=== PATIENT | female | born 1945 | race Caucasian/White ===

== ENCOUNTER 2016-09-26 09:17 | Emergency (ER) | payer MEDICARE ==
[2016-09-26 09:51] LABS: ABSOLUTE BASOPHILS # (AUTO) 0.1 10^3/uL (0.0-0.2); ABSOLUTE EOSINOPHILS # (AUTO) 0.6 10^3/uL (0.0-0.6); ABSOLUTE LYMPHOCYTES (AUTO) 3.2 10^3/uL (0.5-4.7); ABSOLUTE MONOCYTES (AUTO) 1.1 10^3/uL (0.1-1.4); ABSOLUTE NEUT (AUTO) 5.2 10^3/uL (1.7-8.2); BASOPHILS % (AUTO) 0.5 % (0-2); EOSINOPHILS % (AUTO) 5.8 % (0-6); HEMATOCRIT 47.5 % (36.0-47.0); HEMOGLOBIN 16.4 g/dL (12.0-15.5); HGB HCT DIFFERENCE 1.7; LYMPHOCYTES % (AUTO) 31.7 % (13-45); MEAN CORPUSCULAR HGB CONC 34.5 g/dL (32.0-36.0); MEAN CORPUSCULAR VOLUME 90 fl (80-97); MONOCYTES % (AUTO) 10.7 % (3-13); RED BLOOD COUNT 5.28 10^6/uL (3.72-5.28); RED CELL DISTRIBUTION WIDTH 13.9 % (11.5-14.0); SEGMENTED NEUTROPHILS % (AUTO) 51.3 % (42-78); WHITE BLOOD COUNT 10.2 10^3/uL (4.0-10.5)
[2016-09-26 10:10] LABS: ALANINE AMINOTRANSFERASE 31 U/L (9-52); ALBUMIN 3.9 g/dL (3.5-5.0); ALKALINE PHOSPHATASE 81 U/L (38-126); ANION GAP 15 (5-19); ASPARTATE AMINO TRANSFERASE 24 U/L (14-36); BILIRUBIN,TOTAL 0.8 mg/dL (0.2-1.3); BLOOD UREA NITROGEN 26 mg/dL (7-20); CALCIUM 11.1 mg/dL (8.4-10.2); CARBON DIOXIDE 24 mmol/L (22-30); CHLORIDE 108 mmol/L (98-107); CREATINE KINASE 35 U/L (30-135); CREATININE RESULT 0.69 mg/dL (0.52-1.25); GLUCOSE 116 mg/dL (75-110); POTASSIUM 3.5 mmol/L (3.6-5.0); SODIUM 147.4 mmol/L (137-145); TOTAL PROTEIN 6.6 g/dL (6.3-8.2)
[2016-09-26 10:22] LABS: TROPONIN I < 0.012 ng/mL
[2016-09-26] MEDS ORDERED: LIDOCAINE 2% VISCOUS SOLN 20 ML UDCUP PO ONE (10:40)
[2016-09-26] MEDS ORDERED: MAG HYDROX/AL HYDROX/SIMETH SUSP 30 ML UDCUP PO ONE (10:40)
[2016-09-26] MEDS ORDERED: METOCLOPRAMIDE HCL ORAL SOLN 10 MG/10 ML UDCUP PO ONE (10:40)
--- NOTE | 2016-09-26 11:19 | ER Document Report ---
ED General - General Chief Complaint: Chest Pain Stated Complaint: ABDOMINAL PAIN Mode of Arrival: Medic Information source: Patient Notes: 71-year-old female presents with complaints of epigastric abdominal pain. Patient notes burning sensation going up and down her esophagus making her wonder vomit. Patient denies any actual chest pain denies any shortness breath difficult to breathing. Patient notes she had abdominal pain last week was diagnosed with a UTI at that time. TRAVEL OUTSIDE OF THE [place] IN LAST 30 DAYS: No - HPI Onset: Other - One half weeks duration Onset/Duration: Intermittent Quality of pain: Burning Severity: Mild Pain Level: 1 Associated symptoms: Nausea, Vomiting Exacerbated by: Denies Relieved by: Denies Similar symptoms previously: Yes Recently seen / treated by doctor: Yes - Related Data Allergies/Adverse Reactions: ascorbic acid [From Food Allergy Formula] Allergy (Unknown, Verified 09/20/16 06 :07) aspirin [Aspirin] Allergy (Unknown, Verified 09/20/16 06:07) bromelains [From Food Allergy Formula] Allergy (Unknown, Verified 09/20/16 06:07 ) Glutamine [From Food Allergy Formula] Allergy (Unknown, Verified 09/20/16 06:07) Penicillins Allergy (Unknown, Verified 09/20/16 06:07) quercetin [From Food Allergy Formula] Allergy (Unknown, Verified 09/20/16 06:07) selenium [From Food Allergy Formula] Allergy (Unknown, Verified 09/20/16 06:07) atorvastatin [Atorvastatin] Allergy (Verified 09/20/16 06:07) fenofibrate [Fenofibrate] Allergy (Verified 09/20/16 06:07) milk [Milk] Allergy (Verified 09/20/16 06:07) Past Medical History - Social History Smoking Status: Never Smoker Cigarette use (# per day): No Chew tobacco use (# tins/day): No Smoking Education Provided: No Family History: CAD, DM - Past Medical History Cardiac Medical History: Reports: Hx Hypercholesterolemia, Hx Hypertension Neurological Medical History: Denies: Hx Seizures Endocrine Medical History: Reports: Hx Hypothyroidism Renal/ Medical History: Denies: Hx Peritoneal Dialysis Musculoskeltal Medical History: Reports Hx Arthritis Past Surgical History: Reports: Hx Cholecystectomy. Denies: Hx Hysterectomy - Immunizations Hx Diphtheria, Pertussis, Tetanus Vaccination: Yes - unk date Review of Systems - Review of Systems Notes: REVIEW OF SYSTEMS: CONSTITUTIONAL : Denies fever, chills, or sweats. Denies recent illness. EENT: Denies eye, ear, throat, or mouth pain or symptoms. Denies nasal or sinus congestion or discharge. Denies throat, tongue, or mouth swelling or difficulty swallowing. CARDIOVASCULAR: Denies chest pain. Denies palpitations or racing or irregular heart beat. Denies ankle edema. RESPIRATORY: Denies cough, cold, or chest congestion. Denies shortness of breath, difficulty breathing, or wheezing. GASTROINTESTINAL: Admits to abdominal pain burning sensation with nausea and vomiting GENITOURINARY: Denies difficulty urinating, painful urination, burning, frequency, blood in urine, or discharge. FEMALE GENITOURINARY: Denies vaginal bleeding, heavy or abnormal periods, irregular periods. Denies vaginal discharge or odor. MUSCULOSKELETAL: Denies back or neck pain or stiffness. Denies joint pain or swelling. SKIN: Denies rash, lesions or sores. HEMATOLOGIC : Denies easy bruising or bleeding. LYMPHATIC: Denies swollen, enlarged glands. NEUROLOGICAL: Denies confusion or altered mental status. Denies passing out or loss of consciousness. Denies dizziness or lightheadedness. Denies headache. Denies weakness or paralysis or loss of use of either side. Denies problems with gait or speech. Denies sensory loss, numbness, or tingling. Denies seizures. PSYCHIATRIC: Denies anxiety or stress. Denies depression, suicidal ideation, or homicidal ideation. ALL OTHER SYSTEMS REVIEWED AND NEGATIVE. Dictation was performed using [employer] voice recognition software PHYSICAL EXAMINATION: GENERAL: Well-appearing, well-nourished and in no acute distress. HEAD: Atraumatic, normocephalic. EYES: Pupils equal round and reactive to light, extraocular movements intact, conjunctiva are normal. ENT: Nares patent, oropharynx clear without exudates. Moist mucous membranes. NECK: Normal range of motion, supple without lymphadenopathy LUNGS: Breath sounds clear to auscultation bilaterally and equal. No wheezes rales or rhonchi. HEART: Regular rate and rhythm without murmurs ABDOMEN: Soft, nontender, nondistended abdomen. No guarding, no rebound. No masses appreciated. Female : deferred Musculoskeletal: Normal range of motion, no pitting or edema. No cyanosis. NEUROLOGICAL: Cranial nerves grossly intact. Normal speech, normal gait. Normal sensory, motor exams PSYCH: Normal mood, normal affect. SKIN: Warm, Dry, normal turgor, no rashes or lesions noted. Physical Exam - Vital signs Vitals: Pulse Ox 98 09/26/16 09:17 Course - Re-evaluation Re-evalutation: 09/26/16 12:16 Physical examination is consistent with epigastric abdominal pain. Given that it worsens with food feels like a burning sensation that makes her want to vomit I did treat the patient with a GI cocktail which resolved her pain significantly. Patient denies any other pain at this time is very happy with the discharge plan. I believe this was what her issues were a week and half ago and will discharge her home on Pepcid and close follow-up with her primary care physician. There are no concerns for cardiac abnormalities given that EKG and cardiac enzymes did not note any acute abnormality After performing a Medical Screening Examination, I estimate there is LOW risk for ACUTE APPENDICITIS, BOWEL OBSTRUCTION, ACUTE CHOLECYSTITIS, PERFORATED DIVERTICULITIS, INCARCERATED HERNIA, PANCREATITIS, PELVIC INFLAMMATORY DISEASE, PERFORATED ULCER, ECTOPIC , or TUBO-OVARIAN ABSCESS, thus I consider the discharge disposition reasonable. Also, there is no evidence or peritonitis , sepsis, or toxicity. The patient and I have discussed the diagnosis and risks , and we agree with discharging home with close follow-up with the understanding that symptoms and presentations can change. We also discussed returning to the Emergency Department immediately if new or worsening symptoms occur. We have discussed the symptoms which are most concerning (e.g., bloody stool, fever, changing or worsening pain, vomiting) that necessitate immediate return. - Vital Signs Vital signs: Temp Pulse Resp BP Pulse Ox 16 110/93 H 95 09/26/16 10:01 09/26/16 10:00 09/26/16 10:01 - Laboratory Result Diagrams: 09/26/16 09:25 09/26/16 09:25 Laboratory results interpreted by me: 09/26/16 09/26/16 09:25 09:25 Hgb 16.4 H Hct 47.5 H Sodium 147.4 H Potassium 3.5 L Chloride 108 H BUN 26 H Glucose 116 H Calcium 11.1 H - Diagnostic Test Radiology reviewed: Image reviewed, Reports reviewed - EKG Interpretation by Me EKG shows normal: Sinus rhythm, [place], Intervals, QRS Complexes Discharge - Discharge Clinical Impression: Epigastric abdominal pain Nausea & vomiting Qualifiers: Vomiting type: unspecified Vomiting Intractability: non-intractable Qualified Code(s): R11.2 - Nausea with vomiting, unspecified Condition: Stable Disposition: HOME, SELF-CARE Instructions: Abdominal Pain ([facility]), Prilosec (Acid Pump Inhibitor) ([facility]) Prescriptions: Famotidine [Pepcid 20 mg Tablet] 20 mg PO DAILY #30 tablet Forms: Return to Work Referrals: DERRICK GIBBS MD [Primary Care Provider] - Follow up tomorrow
[2016-09-26 12:46] VITALS: BP 114/71
--- NOTE | 2016-09-26 18:33 | EKG REPORT ---
SEVERITY:- ABNORMAL ECG - SINUS TACHYCARDIA INFERIOR INFARCT, AGE INDETERMINATE CONSIDER ANTERIOR INFARCT : Confirmed by: Pepe Gan MD 26-Sep-2016 18:32:19
== END 2016-09-26 12:58 | disposition home or self-care (01) ==
LOC: ER 09:17
DX: R10.13 Epigastric pain (principal); R11.2 Nausea with vomiting, unspecified; R07.9 Chest pain, unspecified; R10.9 Unspecified abdominal pain
CPT/HCPCS: 93005; 99285; 36415; 82553; 82550; 85025; 80053; 84484; 71010; 93010; J3490; A9270

== ENCOUNTER 2017-07-22 09:09 | Emergency (ER) | payer MEDICARE ==
[2017-07-22] MEDS ORDERED: FLUTICASONE NASAL SPRAY 50 MCG/SPRY 120 SPRAY/16 GM NASL ONE (10:06)
--- NOTE | 2017-07-22 10:11 | ER Document Report ---
ED ENT - General Chief Complaint: Sinus Pain Stated Complaint: HEADACHE SINUS PAIN Time Seen by Provider: 07/22/17 09:25 Mode of Arrival: Ambulatory Information source: Patient Notes: 72-year-old female presents to ED for sinus pain and headache. Respirations are regular unlabored speaking in full sentences no acute distress at this time. Patient has denied any fevers patient states she gets sinus problems frequently and with the need of the heat recently this is brought on another episode and it started about 3 days ago. She states that the sinuses do cause her to cough. She has a history of blood pressure hypo-thyroid reflux and sinus problems she is on levothyroxine 88 mcg daily p.o., lisinopril 40 mg daily p.o., metoprolol succinate ER 25 mg daily p.o., a daily multivitamin p.o. , Pepcid 20 mg daily p.o., and pravastatin 20 mg daily. TRAVEL OUTSIDE OF THE [place] IN LAST 30 DAYS: No - HPI Patient complains to provider of: Nose problem, Throat problem Onset: Other - 3 days Onset/Duration: Intermittent Severity: Moderate Pain Level: 2 Context: Recent Illness Location of pain: Nose, Sinus, Throat Associated symptoms: Congestion, Cough, Sinus pain, Sinus drainage, Sore throat Similar symptoms previously: Yes Recently seen / treated by doctor: No - Related Data Allergies/Adverse Reactions: ascorbic acid [From Food Allergy Formula] Allergy (Unknown, Verified 09/20/16 06 :07) aspirin [Aspirin] Allergy (Unknown, Verified 09/20/16 06:07) bromelains [From Food Allergy Formula] Allergy (Unknown, Verified 09/20/16 06:07 ) Glutamine [From Food Allergy Formula] Allergy (Unknown, Verified 09/20/16 06:07) Penicillins Allergy (Unknown, Verified 09/20/16 06:07) quercetin [From Food Allergy Formula] Allergy (Unknown, Verified 09/20/16 06:07) selenium [From Food Allergy Formula] Allergy (Unknown, Verified 09/20/16 06:07) atorvastatin [Atorvastatin] Allergy (Verified 09/20/16 06:07) fenofibrate [Fenofibrate] Allergy (Verified 09/20/16 06:07) milk [Milk] Allergy (Verified 09/20/16 06:07) Past Medical History - General Information source: Patient - Social History Smoking Status: Former Smoker Cigarette use (# per day): No Chew tobacco use (# tins/day): No Smoking Education Provided: No Frequency of alcohol use: Occasional Drug Abuse: None Occupation: mail clerk bills Lives with: Alone Family History: Arthritis, CAD, DM, Hyperlipidemia, Hypertension, Malignancy. denies: COPD, CVA, Thyroid Disfunction Patient has suicidal ideation: No Patient has homicidal ideation: No - Past Medical History Cardiac Medical History: Reports: Hx Hypercholesterolemia, Hx Hypertension Pulmonary Medical History: Reports: None EENT Medical History: Reports: None Neurological Medical History: Reports: None Endocrine Medical History: Reports: Hx Hypothyroidism Renal/ Medical History: Reports: None Malignancy Medical History: Reports: None GI Medical History: Reports: None Musculoskeltal Medical History: Reports None Skin Medical History: Reports None Psychiatric Medical History: Reports: None Traumatic Medical History: Reports: None Infectious Medical History: Reports: None Past Surgical History: Reports: Hx Cholecystectomy - Immunizations Immunizations up to date: No Hx Diphtheria, Pertussis, Tetanus Vaccination: No History of Influenza Vaccine for 04/2017 - 09/2017 Season: No Review of Systems - Review of Systems Constitutional: Recent illness. denies: Chills, Fever EENT: Nose congestion, Nose discharge, Sinus pressure, Sinus discharge Cardiovascular: No symptoms reported Respiratory: Cough Gastrointestinal: No symptoms reported Genitourinary: No symptoms reported Female Genitourinary: No symptoms reported Musculoskeletal: No symptoms reported Skin: No symptoms reported Hematologic/Lymphatic: No symptoms reported Neurological/Psychological: No symptoms reported -: Yes All other systems reviewed and negative Physical Exam - Vital signs Vitals: Temp Pulse Resp BP Pulse Ox 98.6 F 115 H 18 194/90 H 94 07/22/17 09:30 07/22/17 09:30 07/22/17 09:30 07/22/17 09:30 07/22/17 09:30 Interpretation: Normal - General General appearance: Appears well, Alert - HEENT Head: Normocephalic, Atraumatic Eyes: Normal Pupils: PERRL Ears: Normal External canal: Normal Tympanic membrane: Normal Sinus: Frontal, Tenderness Nasal: Purulent discharge, Swelling Mouth/Lips: Normal Mucous membranes: Normal Pharynx: Post nasal drainage Neck: Normal - Respiratory Respiratory status: No respiratory distress Chest status: Nontender Breath sounds: Nonproductive cough. No: Productive cough, Rales, Rhonchi, Stridor, Wheezing Chest palpation: Normal - Cardiovascular Rhythm: Regular Heart sounds: Normal auscultation Murmur: No - Abdominal Inspection: Normal Distension: No distension Bowel sounds: Normal Tenderness: Nontender Organomegaly: No organomegaly - Back Back: Normal, Nontender - Extremities General upper extremity: Normal inspection, Nontender, Normal color, Normal ROM , Normal temperature General lower extremity: Normal inspection, Nontender, Normal color, Normal ROM , Normal temperature, Normal weight bearing. No: Errol's sign - Neurological Neuro grossly intact: Yes Cognition: Normal Orientation: AAOx4 [place] Coma Scale Eye Opening: Spontaneous [place] Coma Scale Verbal: Oriented [place] Coma Scale Motor: Obeys Commands [place] Coma Scale Total: 15 Speech: Normal Motor strength normal: LUE, RUE, LLE, RLE Sensory: Normal - Psychological Associated symptoms: Normal affect, Normal mood - Skin Skin Temperature: Warm Skin Moisture: Dry Skin Color: Normal Course - Re-evaluation Re-evalutation: 07/22/17 10:12 Patient was treated with Flonase in the emergency room and instructed to follow- up with her primary doctor via telephone Monday to have them recommend a allergy medicine for her for her frequent sinus discomfort. She is on blood pressure medicines. - Vital Signs Vital signs: Temp Pulse Resp BP Pulse Ox 98.6 F 98 18 192/88 H 94 07/22/17 09:30 07/22/17 10:18 07/22/17 09:30 07/22/17 10:18 07/22/17 09:30 Discharge - Discharge Clinical Impression: URI (upper respiratory infection) Qualifiers: URI type: unspecified URI Qualified Code(s): J06.9 - Acute upper respiratory infection, unspecified HTN (hypertension) Qualifiers: Hypertension type: unspecified Qualified Code(s): I10 - Essential (primary) hypertension Condition: Stable Disposition: HOME, SELF-CARE Instructions: Family Physicians / Practices Additional Instructions: UPPER RESPIRATORY ILLNESS: You have a viral infection of the respiratory passages -- a "cold." This common infection causes nasal congestion, drainage, and often sore throat and cough. It is highly contagious. The disease usually lasts about 10 to 14 days. There is no "cure" for the viral infection -- it must run its course. If there is a complication, such as bacterial infection in the nose, sinuses, middle ear, or bronchial tubes, antibiotics may be required. The antibiotics won't affect the virus. Drink plenty of fluids. A humidifier may help. An expectorant medication or decongestant may make you more comfortable. Use acetaminophen or ibuprofen for fever or aches. See the doctor if fever persists over two days, if there is any significant worsening of your symptoms, or if you simply fail to improve as expected. COUGH-SUPPRESSANT & EXPECTORANT MEDICATION: You are to use a cough medication as needed for relief of symptoms. This medicine is a combination of an expectorant (to make the mucous thinner and more easily "coughed up") and a cough suppressant (to reduce the frequency of coughing). The cough-suppressant medicine is related to narcotics. You may experience mild nausea and sleepiness. Some patients who are very sensitive to narcotics may have stomach pain from this medicine. Taking the medicine with food reduces these side effects. Do not drive or work with machinery until you know how this medicine affects you. The expectorant should have no side effects. Iodine-containing expectorants (such as organidin) should not be taken by persons with active thyroid disease unless approved by your doctor. Call the doctor if you develop shortness of breath, hives, rash, itching, lightheadedness, or severe nausea and vomiting. USE OF ACETAMINOPHEN (Tylenol): Acetaminophen may be taken for pain relief or fever control. It's much safer than aspirin, offering a wider range of "safe" dosages. It is safe during . Some brand names are Tylenol, Panadol, Datril, Anacin 3, Tempra, and Liquiprin. Acetaminophen can be repeated every four hours. The following are maximum recommended dosages: >89 pounds or adults 650 mg to 900 mg Acetaminophen can be repeated every four hours. Maximum dose not to exceed 4000 mg a day. You was started on Flonase today 2 sprays each nostril. Please call your primary doctor on Monday to ask for recommendations for allergy medicine. FOLLOW-UP CARE: If you have been referred to a physician for follow-up care, call the physician s office for an appointment as you were instructed or within the next two days. If you experience worsening or a significant change in your symptoms, notify the physician immediately or return to the Emergency Department at any time for re-evaluation. Forms: Elevated Blood Pressure, Return to Work Referrals: KEE LA PA-C [Primary Care Provider] - Follow up as needed
[2017-07-22 10:19] VITALS: BP 192/88
== END 2017-07-22 10:28 | disposition home or self-care (01) ==
LOC: ER 09:09
DX: J02.9 Acute pharyngitis, unspecified (principal); I10 Essential (primary) hypertension; J34.89 Other specified disorders of nose and nasal sinuses; R51 Headache; R05 Cough; E03.9 Hypothyroidism, unspecified; E78.00 Pure hypercholesterolemia, unspecified; K21.9 Gastro-esophageal reflux disease without esophagitis; Z79.899 Other long term (current) drug therapy; Z88.6 Allergy status to analgesic agent; Z91.018 Allergy to other foods; Z91.011 Allergy to milk products; Z88.8 Allergy status to other drugs, medicaments and biological substances; Z87.891 Personal history of nicotine dependence
CPT/HCPCS: 99283; A9270

== ENCOUNTER 2017-10-09 08:44 | Emergency (ER) | payer MEDICARE ==
[2017-10-09] MEDS ORDERED: ONDANSETRON 4 MG TAB.RAPDIS PO ONE (09:24)
--- NOTE | 2017-10-09 09:38 | ER Document Report ---
ED GI/ - General Chief Complaint: Nausea/Vomiting Stated Complaint: NAUSEA Time Seen by Provider: 10/09/17 09:24 Mode of Arrival: Ambulatory Information source: Patient Notes: Patient is a 72-year-old female who presents to the ER today for nausea and one episode of vomiting starting last night after she ate "too much lobster" this weekend. Patient states that Monday and Monday she ate a profuse amount of lobster all day long because she "loves lobster." Patient states she has not had lobster in years so she "may have overdone it a bit." Patient states that her belches smell and taste like lobster. She states that all she can think about his lobster and it makes her nauseated. She would like some nausea medication and a work note. She denies any abdominal pain or diarrhea, fevers, chills. TRAVEL OUTSIDE OF THE [place] IN LAST 30 DAYS: No - Related Data Allergies/Adverse Reactions: ascorbic acid [From Food Allergy Formula] Allergy (Unknown, Verified 10/11/17 08 :09) aspirin [Aspirin] Allergy (Unknown, Verified 10/11/17 08:09) bromelains [From Food Allergy Formula] Allergy (Unknown, Verified 10/11/17 08:09 ) Glutamine [From Food Allergy Formula] Allergy (Unknown, Verified 10/11/17 08:09) Penicillins Allergy (Unknown, Verified 10/11/17 08:09) quercetin [From Food Allergy Formula] Allergy (Unknown, Verified 10/11/17 08:09) selenium [From Food Allergy Formula] Allergy (Unknown, Verified 10/11/17 08:09) atorvastatin [Atorvastatin] Allergy (Verified 10/11/17 08:09) fenofibrate [Fenofibrate] Allergy (Verified 10/11/17 08:09) milk [Milk] Allergy (Verified 10/11/17 08:09) Past Medical History - General Information source: Patient - Social History Smoking Status: Former Smoker Family History: Arthritis, CAD, DM, Hyperlipidemia, Hypertension, Malignancy. denies: COPD, CVA, Thyroid Disfunction - Past Medical History Cardiac Medical History: Reports: Hx Hypercholesterolemia, Hx Hypertension Neurological Medical History: Denies: Hx Seizures Endocrine Medical History: Reports: Hx Hypothyroidism Renal/ Medical History: Denies: Hx Peritoneal Dialysis Musculoskeltal Medical History: Reports Hx Arthritis Past Surgical History: Reports: Hx Cholecystectomy. Denies: Hx Hysterectomy - Immunizations Immunizations up to date: No Hx Diphtheria, Pertussis, Tetanus Vaccination: No Review of Systems - Review of Systems Constitutional: No symptoms reported EENT: No symptoms reported Cardiovascular: No symptoms reported Respiratory: No symptoms reported Gastrointestinal: See HPI Genitourinary: No symptoms reported Female Genitourinary: No symptoms reported Musculoskeletal: No symptoms reported Skin: No symptoms reported Hematologic/Lymphatic: No symptoms reported Neurological/Psychological: No symptoms reported Physical Exam - Vital signs Vitals: Temp Pulse Resp BP Pulse Ox 98.6 F 104 H 16 188/99 H 94 10/09/17 08:49 10/09/17 08:49 10/09/17 08:49 10/09/17 08:49 10/09/17 08:49 - Notes Notes: PHYSICAL EXAMINATION: GENERAL: Well-appearing and in no acute distress. HEAD: Atraumatic, normocephalic. EYES: Pupils equal round and reactive to light, extraocular movements intact, sclera anicteric, conjunctiva are normal. NECK: Normal range of motion, supple without lymphadenopathy LUNGS: CTAB and equal. No wheezes rales or rhonchi. HEART: Regular rate and rhythm without murmurs ABDOMEN: Soft, no tenderness. No guarding, no rebound BACK: no vertebral tenderness, normal ROM GI/: no CVA tenderness EXTREMITIES: Normal range of motion, no pitting edema. No cyanosis. NEUROLOGICAL: Cranial nerves grossly intact. Normal sensory/motor exams. PSYCH: Normal mood, normal affect. SKIN: Warm, Dry, normal turgor, no rashes or lesions noted Course - Re-evaluation Re-evalutation: 10/11/17 09:43 Patient has not vomited here, is well-appearing, smiling, laughing about why she is here. She even apologizes multiple times saying "I am so sorry for wasting your time with this." 10/11/17 09:44 - Vital Signs Vital signs: Temp Pulse Resp BP Pulse Ox 98.6 F 93 16 155/85 H 98 10/09/17 08:49 10/09/17 09:45 10/09/17 09:45 10/09/17 09:45 10/09/17 09:45 Discharge - Discharge Clinical Impression: Nausea & vomiting Qualifiers: Vomiting type: unspecified Vomiting Intractability: non-intractable Qualified Code(s): R11.2 - Nausea with vomiting, unspecified Condition: Stable Disposition: HOME, SELF-CARE Additional Instructions: Return immediately for any new or worsening symptoms. Follow up with primary care provider, call tomorrow to make followup appointment. Drink plenty of fluids. Forms: Return to Work Referrals: KEE LA PA-C [Primary Care Provider] - Follow up as needed
[2017-10-09 09:54] VITALS: BP 155/85
== END 2017-10-09 09:45 | disposition home or self-care (01) ==
LOC: ER 08:44
DX: R11.2 Nausea with vomiting, unspecified (principal); I10 Essential (primary) hypertension; Z88.6 Allergy status to analgesic agent; Z91.018 Allergy to other foods; Z91.011 Allergy to milk products; Z87.891 Personal history of nicotine dependence; Z90.49 Acquired absence of other specified parts of digestive tract
CPT/HCPCS: 99283; A9270; S0119

== ENCOUNTER 2017-10-11 08:07 | Emergency (ER) | payer MEDICARE ==
[2017-10-11 09:18] LABS: APPEARANCE,URINE CLEAR; BILIRUBIN,URINE NEGATIVE (NEGATIVE); COLOR,URINE YELLOW; GLUCOSE, URINE NEGATIVE (NEGATIVE); KETONES,URINE NEGATIVE (NEGATIVE); LEUKOCYTE ESTERASE,URINE MODERATE (NEGATIVE); NITRITE,URINE NEGATIVE (NEGATIVE); PROTEIN,URINE NEGATIVE (NEGATIVE); URINE SPECIFIC GRAVITY 1.005; UROBILINOGEN,URINE NEGATIVE mg/dL (<2.0)
--- NOTE | 2017-10-11 09:20 | ER Document Report ---
ED General - General Chief Complaint: Urinary Frequency Stated Complaint: URINARY PROBLEM Time Seen by Provider: 10/11/17 08:38 Notes: 72-year-old lady presents with 48 hours of dysuria constant moderate not associated with fever pain or vomiting. History of UTI. Denies bulging uterine prolapse or other gynecologic/urinary issues. No back pain or fever. TRAVEL OUTSIDE OF THE [place] IN LAST 30 DAYS: No - Related Data Allergies/Adverse Reactions: ascorbic acid [From Food Allergy Formula] Allergy (Unknown, Verified 10/11/17 08 :09) aspirin [Aspirin] Allergy (Unknown, Verified 10/11/17 08:09) bromelains [From Food Allergy Formula] Allergy (Unknown, Verified 10/11/17 08:09 ) Glutamine [From Food Allergy Formula] Allergy (Unknown, Verified 10/11/17 08:09) Penicillins Allergy (Unknown, Verified 10/11/17 08:09) quercetin [From Food Allergy Formula] Allergy (Unknown, Verified 10/11/17 08:09) selenium [From Food Allergy Formula] Allergy (Unknown, Verified 10/11/17 08:09) atorvastatin [Atorvastatin] Allergy (Verified 10/11/17 08:09) fenofibrate [Fenofibrate] Allergy (Verified 10/11/17 08:09) milk [Milk] Allergy (Verified 10/11/17 08:09) Past Medical History - Social History Smoking Status: Never Smoker Chew tobacco use (# tins/day): No Frequency of alcohol use: None Drug Abuse: None Family History: Arthritis, CAD, DM, Hyperlipidemia, Hypertension, Malignancy. denies: COPD, CVA, Thyroid Disfunction Patient has suicidal ideation: No Patient has homicidal ideation: No - Past Medical History Cardiac Medical History: Reports: Hx Hypercholesterolemia, Hx Hypertension Neurological Medical History: Denies: Hx Seizures Endocrine Medical History: Reports: Hx Hypothyroidism Renal/ Medical History: Denies: Hx Peritoneal Dialysis GI Medical History: Reports: Hx Gastroesophageal Reflux Disease Musculoskeltal Medical History: Reports Hx Arthritis Past Surgical History: Reports: Hx Cholecystectomy. Denies: Hx Hysterectomy - Immunizations Immunizations up to date: No Hx Diphtheria, Pertussis, Tetanus Vaccination: No Review of Systems - Review of Systems Notes: REVIEW OF SYSTEMS GEN: Denies fever, chills, weight loss ENT: Denies sore throat, nasal discharge, ear pain EYES: Denies blurry vision, eye pain, discharge CV: Denies chest pain, palpitations, edema RESP: Denies cough, shortness of breath, wheezing GI: Denies abdominal pain, nausea, vomiting, diarrhea MSK: Denies joint pain/swelling, edema, SKIN: Denies rash, skin lesions LYMPH: Denies swollen glands/lymph nodes NEURO: Denies headache, focal weakness or numbness, dizziness PSYCH: Denies depression, suicidal or homicidal ideation PHYSICAL EXAMINATION General: No acute distress, well-nourished Head: Atraumatic, normocephalic ENT: Mouth normal, oropharynx moist, no exudates or tonsillar enlargement Eyes: Conjunctiva normal, pupils equal, lids normal Neck: No JVD, supple, no guarding CVS: Normal rate, regular rhythm, no murmurs Resp: No resp distress, equal and normal breath sounds bilaterally GI: Nondistended, soft, no tenderness to palpation, no rebound or guarding Ext: No deformities, no edema, normal range of motion in upper and lower ext Back: No CVA or midline TTP Skin: No rash, warm Lymphatic: No lymphadeopathy noted Neuro: Awake, alert. Face symmetric. GCS 15. Physical Exam - Vital signs Vitals: Temp Pulse Resp BP Pulse Ox 98.5 F 110 H 18 194/103 H 94 10/11/17 08:23 10/11/17 08:23 10/11/17 08:23 10/11/17 08:23 10/11/17 08:23 Course - Re-evaluation Re-evalutation: 10/11/17 09:27 Elderly patient presents with repeat episode of urinary frequency and history of UTIs. She has no CVA tenderness or fever. Her last labs show a UTI but no signs of kidney stone. Initially mildly tachycardic however on my exam she has normal without fever. She has been cultured I will treat her with Bactrim empirically given her penicillin allergy. I recommended referral to urology given the repeat episodes of UTI. At this time she has no evidence of pyelonephritis and is safe for discharge home. I have discussed with the patient there likely diagnosis, aftercare plan, follow -up plans and my usual and customary return precautions. They verbalized understanding of this. - Vital Signs Vital signs: Temp Pulse Resp BP Pulse Ox 98.5 F 110 H 18 194/103 H 94 10/11/17 08:23 10/11/17 08:23 10/11/17 08:23 10/11/17 08:23 10/11/17 08:23 - Laboratory Laboratory results interpreted by me: 10/11/17 08:45 Ur Leukocyte Esterase MODERATE H Discharge - Discharge Clinical Impression: Acute cystitis without hematuria Condition: Good Disposition: HOME, SELF-CARE Instructions: Urinary Tract Infection ([facility]) Prescriptions: Sulfamethoxazole/Trimethoprim [Bactrim Ds Tablet] 1 each PO BID #14 tablet
[2017-10-11 09:44] VITALS: BP 162/104
== END 2017-10-11 09:44 | disposition home or self-care (01) ==
LOC: ER 08:07
DX: N30.00 Acute cystitis without hematuria (principal); E78.00 Pure hypercholesterolemia, unspecified; I10 Essential (primary) hypertension; E03.9 Hypothyroidism, unspecified; Z88.0 Allergy status to penicillin; Z88.6 Allergy status to analgesic agent; Z90.49 Acquired absence of other specified parts of digestive tract; Z87.440 Personal history of urinary (tract) infections
CPT/HCPCS: 81001; 87086; 87088; 87186; 99283

== ENCOUNTER 2017-11-21 09:01 | Emergency (ER) | payer MEDICARE ==
[2017-11-21] MEDS ORDERED: NORMAL SALINE 1000 ML 1,000 ML IV ONE (09:36)
[2017-11-21 10:50] LABS: ABSOLUTE EOSINOPHILS # (AUTO) 0.3 10^3/uL (0.0-0.6); ABSOLUTE LYMPHOCYTES (AUTO) 2.2 10^3/uL (0.5-4.7); ABSOLUTE MONOCYTES (AUTO) 0.8 10^3/uL (0.1-1.4); ABSOLUTE NEUT (AUTO) 3.7 10^3/uL (1.7-8.2); BASOPHILS % (AUTO) 0.3 % (0-2); EOSINOPHILS % (AUTO) 3.8 % (0-6); HEMOGLOBIN 15.5 g/dL (12.0-15.5); LYMPHOCYTES % (AUTO) 31.8 % (13-45); MEAN CORPUSCULAR HEMOGLOBIN 31.3 pg (27.0-33.4); MEAN CORPUSCULAR HGB CONC 34.4 g/dL (32.0-36.0); MEAN CORPUSCULAR VOLUME 91 fl (80-97); MONOCYTES % (AUTO) 11.3 % (3-13); PLATELET COUNT 221 10^3/uL (150-450); RED BLOOD COUNT 4.94 10^6/uL (3.72-5.28); RED CELL DISTRIBUTION WIDTH 14.1 % (11.5-14.0); SEGMENTED NEUTROPHILS % (AUTO) 52.8 % (42-78); TOTAL CELLS COUNTED % (AUTO) 100 %
[2017-11-21 10:57] LABS: APPEARANCE,URINE SLIGHTLY-CLOUDY; BILIRUBIN,URINE NEGATIVE (NEGATIVE); COLOR,URINE YELLOW; GLUCOSE, URINE NEGATIVE (NEGATIVE); KETONES,URINE NEGATIVE (NEGATIVE); LEUKOCYTE ESTERASE,URINE NEGATIVE (NEGATIVE); NITRITE,URINE NEGATIVE (NEGATIVE); PROTEIN,URINE NEGATIVE (NEGATIVE); URINE SPECIFIC GRAVITY 1.012; UROBILINOGEN,URINE NEGATIVE mg/dL (<2.0)
[2017-11-21 11:13] LABS: ALANINE AMINOTRANSFERASE 31 U/L (9-52); ALBUMIN 3.9 g/dL (3.5-5.0); ALKALINE PHOSPHATASE 75 U/L (38-126); ANION GAP 10 (5-19); ASPARTATE AMINO TRANSFERASE 29 U/L (14-36); BILIRUBIN,DIRECT 0.2 mg/dL (0.0-0.4); BILIRUBIN,TOTAL 0.5 mg/dL (0.2-1.3); BLOOD UREA NITROGEN 16 mg/dL (7-20); CALCIUM 9.7 mg/dL (8.4-10.2); CARBON DIOXIDE 28 mmol/L (22-30); CHLORIDE 109 mmol/L (98-107); GLUCOSE 87 mg/dL (75-110); POTASSIUM 3.9 mmol/L (3.6-5.0); SODIUM 146.9 mmol/L (137-145); TOTAL PROTEIN 6.6 g/dL (6.3-8.2)
--- NOTE | 2017-11-21 11:29 | ER Document Report ---
ED GI/ - General Chief Complaint: Diarrhea Stated Complaint: DIARRHEA, STOMACH PAIN Time Seen by Provider: 11/21/17 09:35 Mode of Arrival: Ambulatory Information source: Patient Notes: Patient is a 72-year-old female who presents to the ER today for diarrhea times many months. Patient has been seen here for this, but denies that she has seen gastroenterology for this. Patient denies any fever, chills, abdominal pain or pain with having bowel movements. Patient denies any nausea or vomiting. She states over and over again "I do not have any pain at all." She has not been on any antibiotics recently and denies a foul smell to the diarrhea. She denies any blood in her diarrhea. TRAVEL OUTSIDE OF THE [place] IN LAST 30 DAYS: No - Related Data Allergies/Adverse Reactions: ascorbic acid [From Food Allergy Formula] Allergy (Unknown, Verified 10/11/17 08 :09) aspirin [Aspirin] Allergy (Unknown, Verified 10/11/17 08:09) bromelains [From Food Allergy Formula] Allergy (Unknown, Verified 10/11/17 08:09 ) Glutamine [From Food Allergy Formula] Allergy (Unknown, Verified 10/11/17 08:09) Penicillins Allergy (Unknown, Verified 10/11/17 08:09) quercetin [From Food Allergy Formula] Allergy (Unknown, Verified 10/11/17 08:09) selenium [From Food Allergy Formula] Allergy (Unknown, Verified 10/11/17 08:09) atorvastatin [Atorvastatin] Allergy (Verified 10/11/17 08:09) fenofibrate [Fenofibrate] Allergy (Verified 10/11/17 08:09) milk [Milk] Allergy (Verified 10/11/17 08:09) Past Medical History - General Information source: Patient - Social History Smoking Status: Never Smoker Chew tobacco use (# tins/day): No Frequency of alcohol use: None Drug Abuse: None Family History: Arthritis, CAD, DM, Hyperlipidemia, Hypertension, Malignancy. denies: COPD, CVA, Thyroid Disfunction Patient has suicidal ideation: No Patient has homicidal ideation: No - Past Medical History Cardiac Medical History: Reports: Hx Hypercholesterolemia, Hx Hypertension Neurological Medical History: Denies: Hx Seizures Endocrine Medical History: Reports: Hx Hypothyroidism Renal/ Medical History: Denies: Hx Peritoneal Dialysis GI Medical History: Reports: Hx Gastroesophageal Reflux Disease Musculoskeltal Medical History: Reports Hx Arthritis Past Surgical History: Reports: Hx Cholecystectomy. Denies: Hx Hysterectomy - Immunizations Immunizations up to date: No Hx Diphtheria, Pertussis, Tetanus Vaccination: No Review of Systems - Review of Systems Constitutional: No symptoms reported EENT: No symptoms reported Cardiovascular: No symptoms reported Respiratory: No symptoms reported Gastrointestinal: See HPI Genitourinary: No symptoms reported Female Genitourinary: No symptoms reported Musculoskeletal: No symptoms reported Skin: No symptoms reported Hematologic/Lymphatic: No symptoms reported Neurological/Psychological: No symptoms reported Physical Exam - Vital signs Vitals: Temp Pulse Resp BP Pulse Ox 98.4 F 106 H 18 166/80 H 95 11/21/17 09:08 11/21/17 09:08 11/21/17 09:08 11/21/17 09:08 11/21/17 09:08 - Notes Notes: PHYSICAL EXAMINATION: GENERAL: Well-appearing and in no acute distress. HEAD: Atraumatic, normocephalic. EYES: Pupils equal round and reactive to light, extraocular movements intact, sclera anicteric, conjunctiva are normal. NECK: Normal range of motion, supple without lymphadenopathy LUNGS: CTAB and equal. No wheezes rales or rhonchi. HEART: Regular rate and rhythm without murmurs ABDOMEN: Soft, no tenderness. No guarding, no rebound BACK: no vertebral tenderness, normal ROM GI/: no CVA tenderness EXTREMITIES: Normal range of motion, no pitting edema. No cyanosis. NEUROLOGICAL: Cranial nerves grossly intact. Normal sensory/motor exams. PSYCH: Normal mood, normal affect. SKIN: Warm, Dry, normal turgor, no rashes or lesions noted Course - Re-evaluation Re-evalutation: 11/21/17 11:53 Lab work is all unremarkable today including a normal white blood cell count, patient states after being told of normal labs, "can I just get a note for work , I just need to rest for a few days." her abdomen is nontender. - Vital Signs Vital signs: Temp Pulse Resp BP Pulse Ox 98.0 F 87 16 159/90 H 95 11/21/17 11:43 11/21/17 11:43 11/21/17 11:43 11/21/17 11:43 11/21/17 11:43 - Laboratory Result Diagrams: 11/21/17 10:20 05/15/18 10:20 Laboratory results interpreted by me: 11/21/17 11/21/17 10:20 10:20 RDW 14.1 H Sodium 146.9 H Chloride 109 H Discharge - Discharge Clinical Impression: Chronic diarrhea Condition: Stable Disposition: HOME, SELF-CARE Additional Instructions: Return immediately for any new or worsening symptoms. Follow up with GI doctor, call tomorrow to make followup appointment. Forms: Return to Work Referrals: HERMELINDA RODRÍGUEZ MD [ACTIVE STAFF] - Follow up as needed
[2017-11-21 11:44] VITALS: BP 159/90
== END 2017-11-21 11:44 | disposition home or self-care (01) ==
LOC: ER 09:01
DX: R19.7 Diarrhea, unspecified (principal); R10.9 Unspecified abdominal pain; E78.00 Pure hypercholesterolemia, unspecified; I10 Essential (primary) hypertension; E03.9 Hypothyroidism, unspecified; Z88.6 Allergy status to analgesic agent; Z88.0 Allergy status to penicillin; Z90.49 Acquired absence of other specified parts of digestive tract
CPT/HCPCS: 99284; 96360; 36415; 83690; 85025; 80053; 81001; J7030

== ENCOUNTER 2018-04-20 13:06 | Emergency (ER) | payer MEDICARE ==
--- NOTE | 2018-04-20 13:37 | ER Document Report ---
ED Medical Screen (RME) - General Chief Complaint: Headache Stated Complaint: HEADACHE Time Seen by Provider: 04/20/18 13:36 Mode of Arrival: Ambulatory Information source: Patient TRAVEL OUTSIDE OF THE [place] IN LAST 30 DAYS: No - HPI Patient complains to provider of: luke Onset: Yesterday - pt with h/i sinus LUKE but this was not relieved by tylenol - Related Data Allergies/Adverse Reactions: ascorbic acid [From Food Allergy Formula] Allergy (Unknown, Verified 04/20/18 13 :07) aspirin [Aspirin] Allergy (Unknown, Verified 04/20/18 13:07) bromelains [From Food Allergy Formula] Allergy (Unknown, Verified 04/20/18 13:07 ) Glutamine [From Food Allergy Formula] Allergy (Unknown, Verified 04/20/18 13:07) Penicillins Allergy (Unknown, Verified 04/20/18 13:07) quercetin [From Food Allergy Formula] Allergy (Unknown, Verified 04/20/18 13:07) selenium [From Food Allergy Formula] Allergy (Unknown, Verified 04/20/18 13:07) atorvastatin [Atorvastatin] Allergy (Verified 04/20/18 13:07) fenofibrate [Fenofibrate] Allergy (Verified 04/20/18 13:07) milk [Milk] Allergy (Verified 04/20/18 13:07) Past Medical History - Past Medical History Cardiac Medical History: Reports: Hx Hypercholesterolemia, Hx Hypertension Neurological Medical History: Denies: Hx Seizures Endocrine Medical History: Reports: Hx Hypothyroidism Renal/ Medical History: Denies: Hx Peritoneal Dialysis GI Medical History: Reports: Hx Gastroesophageal Reflux Disease Musculoskeltal Medical History: Reports Hx Arthritis Past Surgical History: Reports: Hx Cholecystectomy. Denies: Hx Hysterectomy - Immunizations Immunizations up to date: No Hx Diphtheria, Pertussis, Tetanus Vaccination: No History of Influenza Vaccine for 04/2017 - 09/2017 Season: No Physical Exam - Vital signs Vitals: Temp Pulse Resp BP Pulse Ox 98.7 F 97 18 151/81 H 95 04/20/18 13:23 04/20/18 13:23 04/20/18 13:23 04/20/18 13:23 04/20/18 13:23 Course - Vital Signs Vital signs: Temp Pulse Resp BP Pulse Ox 98.7 F 97 18 151/81 H 95 04/20/18 13:23 04/20/18 13:23 04/20/18 13:23 04/20/18 13:23 04/20/18 13:23
[2018-04-20 13:57] LABS: ABSOLUTE EOSINOPHILS # (AUTO) 0.3 10^3/uL (0.0-0.6); ABSOLUTE LYMPHOCYTES (AUTO) 3.1 10^3/uL (0.5-4.7); ABSOLUTE MONOCYTES (AUTO) 0.9 10^3/uL (0.1-1.4); ABSOLUTE NEUT (AUTO) 3.7 10^3/uL (1.7-8.2); BASOPHILS % (AUTO) 0.4 % (0-2); HEMOGLOBIN 16.6 g/dL (12.0-15.5); LYMPHOCYTES % (AUTO) 38.1 % (13-45); MEAN CORPUSCULAR HEMOGLOBIN 32.2 pg (27.0-33.4); MEAN CORPUSCULAR HGB CONC 35.4 g/dL (32.0-36.0); MEAN CORPUSCULAR VOLUME 91 fl (80-97); MONOCYTES % (AUTO) 11.8 % (3-13); PLATELET COUNT 280 10^3/uL (150-450); RED BLOOD COUNT 5.17 10^6/uL (3.72-5.28); RED CELL DISTRIBUTION WIDTH 14.5 % (11.5-14.0); SEGMENTED NEUTROPHILS % (AUTO) 45.7 % (42-78); TOTAL CELLS COUNTED % (AUTO) 100 %
--- NOTE | 2018-04-20 14:18 | RADIOLOGY REPORT (SQ) ---
EXAM DESCRIPTION: CT HEAD WITHOUT COMPLETED DATE/TIME: 04/20/2018 2:06 pm REASON FOR STUDY: davis COMPARISON: None. TECHNIQUE: Axial images acquired through the brain without intravenous contrast. Images reviewed wi th bone, brain and subdural windows. Additional sagittal and coronal reconstructions were generated. Images stored on PACS. All CT scanners at this facility use dose modulation, iterative reconstruction, and/or weight based d osing when appropriate to reduce radiation dose to as low as reasonably achievable (ALARA). [facility]: Dose Right [facility]: CareDose [facility]: Dose Right [facility]: Teradose 4D [facility]: [employer] [facility] RADIATION DOSE: CT Rad equipment meets quality standard of care and radiation dose reduction techniq ues were employed. CTDIvol: 53.2 mGy. DLP: 991 mGy-cm. mGy. LIMITATIONS: None. FINDINGS: VENTRICLES: Normal size and contour. CEREBRUM: No masses. No hemorrhage. No midline shift. No evidence for acute infarction. Normal gra y/white matter differentiation. No areas of low density in the white matter. CEREBELLUM: No masses. No hemorrhage. No alteration of density. No evidence for acute infarction. EXTRAAXIAL SPACES: No fluid collections. No masses. ORBITS AND GLOBE: No intra- or extraconal masses. Normal contour of globe without masses. CALVARIUM: No fracture. PARANASAL SINUSES: No fluid or mucosal thickening. SOFT TISSUES: No mass or hematoma. OTHER: No other significant finding. IMPRESSION: NORMAL BRAIN CT WITHOUT CONTRAST. EVIDENCE OF ACUTE STROKE: NO. COMMENT: Quality ID # [id number]: Final reports with documentation of one or more dose reduction techniques (e.g., Automated exposure control, adjustment of the mA and/or kV according to patient size, use of iterative reconstruction technique) TECHNICAL DOCUMENTATION: JOB ID: [id number] [employer]- All Rights Reserved Reading location - IP/workstation name: [email or web address]
[2018-04-20 14:21] LABS: ALANINE AMINOTRANSFERASE 32 U/L (9-52); ALBUMIN 4.4 g/dL (3.5-5.0); ALKALINE PHOSPHATASE 82 U/L (38-126); ANION GAP 10 (5-19); ASPARTATE AMINO TRANSFERASE 26 U/L (14-36); BILIRUBIN,DIRECT 0.2 mg/dL (0.0-0.4); BILIRUBIN,TOTAL 0.9 mg/dL (0.2-1.3); BLOOD UREA NITROGEN 18 mg/dL (7-20); CALCIUM 10.5 mg/dL (8.4-10.2); CARBON DIOXIDE 26 mmol/L (22-30); CHLORIDE 107 mmol/L (98-107); GLUCOSE 95 mg/dL (75-110); POTASSIUM 4.2 mmol/L (3.6-5.0); SODIUM 143.1 mmol/L (137-145); TOTAL PROTEIN 7.6 g/dL (6.3-8.2)
[2018-04-20] MEDS ORDERED: AZITHROMYCIN 250 MG TABLET PO ONE (16:18)
--- NOTE | 2018-04-20 16:24 | ER Document Report ---
ED Headache - General Chief Complaint: Headache Stated Complaint: HEADACHE Time Seen by Provider: 04/20/18 13:36 Mode of Arrival: Ambulatory Notes: 73-year-old female with a slow development of "sinus pain" for 2 days. She states nasal congestion without fevers or vomiting. She denies any neck pain, chest pain, palpitations, weakness or numbness. Patient states that she does have some mild nausea without vomiting. Patient states she gets this around 2 times per year. Patient states she has not had any recent antibiotics for this pain or discharge. Patient denies any blurry vision or pain to the temporal region. TRAVEL OUTSIDE OF THE [place] IN LAST 30 DAYS: No - HPI Patient complains to provider of: Headache Patient reports: Other - See above Onset: Other - See above Onset was: Cannot pinpoint Quality of pain: Achy Severity: Mild Pain Level: 1 Associated symptoms: Other - See above Similar symptoms previously: Yes - Related Data Allergies/Adverse Reactions: ascorbic acid [From Food Allergy Formula] Allergy (Unknown, Verified 04/20/18 13 :07) aspirin [Aspirin] Allergy (Unknown, Verified 04/20/18 13:07) bromelains [From Food Allergy Formula] Allergy (Unknown, Verified 04/20/18 13:07 ) Glutamine [From Food Allergy Formula] Allergy (Unknown, Verified 04/20/18 13:07) Penicillins Allergy (Unknown, Verified 04/20/18 13:07) quercetin [From Food Allergy Formula] Allergy (Unknown, Verified 04/20/18 13:07) selenium [From Food Allergy Formula] Allergy (Unknown, Verified 04/20/18 13:07) atorvastatin [Atorvastatin] Allergy (Verified 04/20/18 13:07) fenofibrate [Fenofibrate] Allergy (Verified 04/20/18 13:07) milk [Milk] Allergy (Verified 04/20/18 13:07) Past Medical History - General Information source: Patient - Social History Smoking Status: Former Smoker Frequency of alcohol use: Rare Drug Abuse: None Family History: Arthritis, CAD, DM, Hyperlipidemia, Hypertension, Malignancy. denies: COPD, CVA, Thyroid Disfunction Patient has suicidal ideation: No Patient has homicidal ideation: No - Past Medical History Cardiac Medical History: Reports: Hx Hypercholesterolemia, Hx Hypertension Neurological Medical History: Denies: Hx Seizures Endocrine Medical History: Reports: Hx Hypothyroidism Renal/ Medical History: Denies: Hx Peritoneal Dialysis GI Medical History: Reports: Hx Gastroesophageal Reflux Disease Musculoskeletal Medical History: Reports Hx Arthritis Past Surgical History: Reports: Hx Cholecystectomy. Denies: Hx Hysterectomy - Immunizations Immunizations up to date: No Hx Diphtheria, Pertussis, Tetanus Vaccination: No Review of Systems - Review of Systems Constitutional: denies: Fever EENT: Nose congestion. denies: Eye discharge, Nose discharge Cardiovascular: denies: Chest pain, Palpitations Respiratory: denies: Short of breath Gastrointestinal: denies: Vomiting Genitourinary: denies: Dysuria Musculoskeletal: denies: Leg swelling Skin: Other - no hives. denies: Rash Neurological/Psychological: Other - no slurred speech -: Yes All other systems reviewed and negative Physical Exam - Vital signs Vitals: Temp Pulse Resp BP Pulse Ox 98.7 F 97 18 151/81 H 95 04/20/18 13:23 04/20/18 13:23 04/20/18 13:23 04/20/18 13:23 04/20/18 13:23 Notes: Reviewed vital signs and nursing note as charted by RN. CONSTITUTIONAL: Alert and oriented and responds appropriately to questions. Well -appearing; well-nourished HEAD: Normocephalic; atraumatic EYES: PERRL; Conjunctivae clear, sclerae non-icteric ENT: Normal nose; no rhinorrhea; no temporal erythema or tenderness; moist mucous membranes; pharynx without lesions noted NECK: Supple without meningismus; non-tender; no cervical lymphadenopathy, no masses CARD: Regular rate and rhythm; no murmurs; symmetric distal pulses RESP: Normal chest excursion without splinting or tachypnea; breath sounds clear and equal bilaterally ABD/GI: Normal bowel sounds; non-distended; soft, non-tender BACK: The back appears normal and is non-tender to palpation EXT: Normal ROM in all joints; non-tender to palpation; no edema SKIN: Normal color for age and race; no acute lesions noted NEURO: Cn 2-12 intact. 5 out of 5 bilateral upper and lower extremity strength with sensation intact light touch PSYCH: The patient's mood and manner are appropriate. Grooming and personal hygiene are appropriate. Course - Re-evaluation Re-evalutation: Given the above history and physical examination, I will order Sharif-Pen pressures, perform a CT scan of the head, with basic laboratory values ordered in triage. 04/20/18 16:24 CT scan of the head as recorded. Sharif-Pen pressures are 16 bilaterally. Patient still has no focal neurological deficits. Patient states that she feels "much better". Given the lack of increased intraocular pressure, CT as recorded, no focal logical deficits, no fever, no temporal erythema or tenderness, I do not believe that the patient requires any further imaging or laboratory values at this time. Blood pressure was 150/80. Patient does have a primary care physician. Patient will be discharged home with strict return precautions and instructions for follow-up with the primary care provider. - Vital Signs Vital signs: Temp Pulse Resp BP Pulse Ox 98.7 F 97 18 151/81 H 95 04/20/18 13:23 04/20/18 13:23 04/20/18 13:23 04/20/18 13:23 04/20/18 13:23 - Laboratory Result Diagrams: 04/20/18 13:44 04/20/18 13:44 Laboratory results interpreted by me: 04/20/18 04/20/18 13:44 13:44 Hgb 16.6 H RDW 14.5 H Calcium 10.5 H Discharge - Discharge Clinical Impression: Headache Qualifiers: Headache type: unspecified Headache chronicity pattern: unspecified pattern Intractability: not intractable Qualified Code(s): R51 - Headache Condition: Good Disposition: HOME, SELF-CARE Additional Instructions: Come back immediately for any increased pain, change in location or quality of pain, fevers or vomiting, blurry vision, weakness or numbness, or any other acute problems. Please make sure that you follow-up with the primary care provider as we have discussed. Prescriptions: Azithromycin [Zithromax 250 mg Tablet] 250 mg PO ASDIR PRN #6 tablet PRN Reason:
[2018-04-20 16:52] VITALS: BP 157/94
== END 2018-04-20 16:50 | disposition home or self-care (01) ==
LOC: ER 13:06
DX: R51 Headache (principal); R09.81 Nasal congestion; R11.0 Nausea; I10 Essential (primary) hypertension; Z88.6 Allergy status to analgesic agent; Z91.018 Allergy to other foods; Z88.0 Allergy status to penicillin; Z91.011 Allergy to milk products
CPT/HCPCS: 99284; 36415; 85025; 80053; 70450; A9270

== ENCOUNTER 2020-04-10 11:38 | Emergency (ER) | payer MEDICARE ==
[2020-04-10 13:15] LABS: APPEARANCE,URINE SLIGHTLY-CLOUDY; BILIRUBIN,URINE NEGATIVE (NEGATIVE); COLOR,URINE YELLOW; GLUCOSE, URINE NEGATIVE (NEGATIVE); KETONES,URINE 20 mg/dL (NEGATIVE); LEUKOCYTE ESTERASE,URINE NEGATIVE (NEGATIVE); NITRITE,URINE NEGATIVE (NEGATIVE); PROTEIN,URINE NEGATIVE (NEGATIVE); URINE SPECIFIC GRAVITY 1.011; UROBILINOGEN,URINE NEGATIVE mg/dL (<2.0)
[2020-04-10 13:30] LABS: ABSOLUTE BASOPHILS # (AUTO) 0.1 10^3/uL (0.0-0.2); ABSOLUTE EOSINOPHILS # (AUTO) 0.2 10^3/uL (0.0-0.6); ABSOLUTE LYMPHOCYTES (AUTO) 2.8 10^3/uL (0.5-4.7); ABSOLUTE MONOCYTES (AUTO) 0.8 10^3/uL (0.1-1.4); ABSOLUTE NEUT (AUTO) 3.9 10^3/uL (1.7-8.2); BASOPHILS % (AUTO) 0.7 % (0-2); EOSINOPHILS % (AUTO) 2.5 % (0-6); HEMATOCRIT 44.5 % (36.0-47.0); HEMOGLOBIN 15.9 g/dL (12.0-15.5); LYMPHOCYTES % (AUTO) 36.4 % (13-45); MEAN CORPUSCULAR HEMOGLOBIN 32.1 pg (27.0-33.4); MEAN CORPUSCULAR HGB CONC 35.8 g/dL (32.0-36.0); MEAN CORPUSCULAR VOLUME 90 fl (80-97); MONOCYTES % (AUTO) 10.1 % (3-13); PLATELET COUNT 272 10^3/uL (150-450); RED BLOOD COUNT 4.96 10^6/uL (3.72-5.28); RED CELL DISTRIBUTION WIDTH 14.3 % (11.5-14.0); SEGMENTED NEUTROPHILS % (AUTO) 50.3 % (42-78); TOTAL CELLS COUNTED % (AUTO) 100 %; WHITE BLOOD COUNT 7.7 10^3/uL (4.0-10.5)
[2020-04-10] MEDS ORDERED: ONDANSETRON HCL INJ/PF 4 MG/2 ML SDV IV ONE (13:33)
--- NOTE | 2020-04-10 13:34 | ER Document Report ---
ED Medical Screen (RME) - General Chief Complaint: Nausea/Vomiting/Diarrhea Stated Complaint: NAUSEA,VOMITING,DIARRHEA Time Seen by Provider: 04/10/20 13:09 Primary Care Provider: DERRICK GIBBS MD [Primary Care Provider] - Follow up as needed Mode of Arrival: Ambulatory Information source: Patient Notes: Patient presents complaining of nausea vomiting diarrhea that started yesterday. Patient reports vomiting once today and has not had any diarrhea today. Patient reports some abdominal discomfort although denies pain. Patient denies any fever or cough. Patient with a history of hypertension, dyslipidemia and GERD. I have greeted and performed a rapid initial assessment of this patient. A comprehensive ED assessment and evaluation of the patient, analysis of test results and completion of the medical decision making process will be conducted by additional ED providers. TRAVEL OUTSIDE OF THE [place] IN LAST 30 DAYS: No - Related Data Allergies/Adverse Reactions: ascorbic acid [From Food Allergy Formula] Allergy (Unknown, Verified 04/10/20 12:18) aspirin [Aspirin] Allergy (Unknown, Verified 04/10/20 12:18) bromelains [From Food Allergy Formula] Allergy (Unknown, Verified 04/10/20 12 :18) Glutamine [From Food Allergy Formula] Allergy (Unknown, Verified 04/10/20 12:18) Penicillins Allergy (Unknown, Verified 04/10/20 12:18) quercetin [From Food Allergy Formula] Allergy (Unknown, Verified 04/10/20 12:18) selenium [From Food Allergy Formula] Allergy (Unknown, Verified 04/10/20 12:18) atorvastatin [Atorvastatin] Allergy (Verified 04/10/20 12:18) fenofibrate [Fenofibrate] Allergy (Verified 04/10/20 12:18) milk [Milk] Allergy (Verified 04/10/20 12:18) Home Medications: tylenol, fish oil, levothyroxine, lisinopril, metoprolol, multivitamin, pepcid, pravastatin Past Medical History - Social History Frequency of alcohol use: Occasional Drug Abuse: None - Past Medical History Cardiac Medical History: Reports: Hx Hypercholesterolemia, Hx Hypertension Neurological Medical History: Denies: Hx Seizures Endocrine Medical History: Reports: Hx Hypothyroidism Renal/ Medical History: Denies: Hx Peritoneal Dialysis GI Medical History: Reports: Hx Gastroesophageal Reflux Disease Musculoskeltal Medical History: Reports Hx Arthritis Past Surgical History: Reports: Hx Cholecystectomy. Denies: Hx Hysterectomy - Immunizations Immunizations up to date: No Hx Diphtheria, Pertussis, Tetanus Vaccination: No Physical Exam - Vital signs Vitals: Temp Pulse Resp BP Pulse Ox 98.4 F 92 16 180/93 H 98 04/10/20 11:45 04/10/20 11:45 04/10/20 11:45 04/10/20 11:45 04/10/20 11:45 - Abdominal Inspection: Normal Tenderness: Nontender Course - Vital Signs Vital signs: Temp Pulse Resp BP Pulse Ox 98.4 F 92 16 180/93 H 98 04/10/20 11:45 04/10/20 11:45 04/10/20 11:45 04/10/20 11:45 04/10/20 11:45 - Laboratory Result Diagrams: 04/10/20 12:00 04/10/20 12:00 Laboratory results interpreted by me: 04/10/20 13:00 Urine Ketones 20 H Doctor's Discharge - Discharge Referrals: DERRICK GIBBS MD [Primary Care Provider] - Follow up as needed
[2020-04-10 13:35] LABS: ALBUMIN 4.3 g/dL (3.5-5.0); ALKALINE PHOSPHATASE 71 U/L (38-126); ANION GAP 10 (5-19); ASPARTATE AMINO TRANSFERASE 29 U/L (14-36); BILIRUBIN,DIRECT 0.4 mg/dL (0.0-0.4); BILIRUBIN,TOTAL 1.2 mg/dL (0.2-1.3); BLOOD UREA NITROGEN 12 mg/dL (7-20); CALCIUM 10.2 mg/dL (8.4-10.2); CARBON DIOXIDE 26 mmol/L (22-30); CHLORIDE 104 mmol/L (98-107); GLUCOSE 100 mg/dL (75-110); POTASSIUM 3.7 mmol/L (3.6-5.0); TOTAL PROTEIN 6.9 g/dL (6.3-8.2)
--- NOTE | 2020-04-10 14:55 | ER Document Report ---
ED GI/ - General Chief Complaint: Nausea/Vomiting/Diarrhea Stated Complaint: NAUSEA,VOMITING,DIARRHEA Time Seen by Provider: 04/10/20 13:09 Primary Care Provider: DERRICK GIBBS MD [Primary Care Provider] - Follow up as needed Mode of Arrival: Ambulatory Notes: CHIEF COMPLAINT: Vomiting HPI: 75-year-old female reasonably healthy presenting for 1 episode of vomiting yesterday one episode of vomiting today. Patient states that she ate ham yesterday that she thought might be bad. She states this precipitated her symptoms. States she had a little bit of abdominal discomfort yesterday but it has completely resolved at this time. No fever no diarrhea ROS: See HPI - all other systems were reviewed and are otherwise negative Constitutional: no fever Eyes: no drainage, no blurred vision ENT: no runny nose, no sore throat Cardiovascular: no chest pain Resp: no SOB, no cough GI: + vomiting, no diarrhea, positive abdominal pain resolved : no dysuria Integumentary: no rash Allergy: no hives Musculoskeletal: no extremity pain or swelling Neurological: no numbness/tingling, no weakness MEDICATIONS: I agree with the patient medications as charted by the RN. ALLERGIES: I agree with the allergies as charted by the RN. PAST MEDICAL HISTORY/PAST SURGICAL HISTORY: Reviewed and agree as charted by RN. SOCIAL HISTORY: Reviewed and agree as charted by RN. FAMILY HISTORY: No significant familial comorbid conditions directly related to patient complaint EXAM: Reviewed vital signs as charted by RN. CONSTITUTIONAL: Alert and oriented and responds appropriately to questions. Wel l-appearing; well-nourished HEAD: Normocephalic; atraumatic EYES: PERRL; Conjunctivae clear, sclerae non-icteric ENT: normal nose; no rhinorrhea; moist mucous membranes; pharynx without lesions noted, no uvula edema or deviation, no tonsillar hypertrophy, phonation normal NECK: Supple without meningismus; non-tender; no cervical lymphadenopathy, no masses CARD: RRR; no murmurs, no clicks, no rubs, no gallops; symmetric distal pulses RESP: Normal chest excursion without splinting or tachypnea; breath sounds clear and equal bilaterally; no wheezes, no rhonchi, no rales, pulse oximetry 98% on room air not hypoxic ABD/GI: Normal bowel sounds; non-distended; soft, absolutely no tenderness on palpation of the abdomen today, no rebound, no guarding; no palpable organomegaly or masses. BACK: The back appears normal and is non-tender to palpation, there is no CVA tenderness EXT: Normal ROM in all joints; non-tender to palpation; no cyanosis, no effusions, no edema SKIN: Normal color for age and race; warm; dry; good turgor; no acute lesions noted NEURO: Moves all extremities equally; Motor and sensory function intact PSYCH: The patient's mood and manner are appropriate. Grooming and personal hygiene are appropriate. MDM: 75-year-old female had 2 episodes of vomiting in the last 24 hours after eating ham. She believes the food precipitated her symptoms. She declines COVID testing is not concerned about COVID-19. Patient's lab work does not show any acute abnormalities. She has absolutely no abdominal pain on exam to suggest a surgical or significant infectious process at this time. I spoke with the patient at length about this. She is comfortable with the plan to discharge home at this time she prefers to go home without further testing. She will return for onset of abdominal pain or fever or recurrent vomiting TRAVEL OUTSIDE OF THE [place] IN LAST 30 DAYS: No - Related Data Allergies/Adverse Reactions: ascorbic acid [From Food Allergy Formula] Allergy (Unknown, Verified 04/10/20 12:18) aspirin [Aspirin] Allergy (Unknown, Verified 04/10/20 12:18) bromelains [From Food Allergy Formula] Allergy (Unknown, Verified 04/10/20 12:18) Glutamine [From Food Allergy Formula] Allergy (Unknown, Verified 04/10/20 12:18) Penicillins Allergy (Unknown, Verified 04/10/20 12:18) quercetin [From Food Allergy Formula] Allergy (Unknown, Verified 04/10/20 12:18) selenium [From Food Allergy Formula] Allergy (Unknown, Verified 04/10/20 12:18) atorvastatin [Atorvastatin] Allergy (Verified 04/10/20 12:18) fenofibrate [Fenofibrate] Allergy (Verified 04/10/20 12:18) milk [Milk] Allergy (Verified 04/10/20 12:18) Home Medications: tylenol, fish oil, levothyroxine, lisinopril, metoprolol, multivitamin, pepcid, pravastatin Past Medical History - General Information source: Patient - Social History Smoking Status: Never Smoker Frequency of alcohol use: Occasional Drug Abuse: None Family History: Arthritis, CAD, DM, Hyperlipidemia, Hypertension, Malignancy. denies: COPD, CVA, Thyroid Disfunction - Past Medical History Cardiac Medical History: Reports: Hx Hypercholesterolemia, Hx Hypertension Neurological Medical History: Denies: Hx Seizures Endocrine Medical History: Reports: Hx Hypothyroidism Renal/ Medical History: Denies: Hx Peritoneal Dialysis GI Medical History: Reports: Hx Gastroesophageal Reflux Disease Musculoskeletal Medical History: Reports Hx Arthritis Past Surgical History: Reports: Hx Cholecystectomy. Denies: Hx Hysterectomy - Immunizations Immunizations up to date: No Hx Diphtheria, Pertussis, Tetanus Vaccination: No Physical Exam - Vital signs Vitals: Temp Pulse Resp BP Pulse Ox 98.4 F 92 16 180/93 H 98 04/10/20 11:45 04/10/20 11:45 04/10/20 11:45 04/10/20 11:45 04/10/20 11:45 Course - Vital Signs Vital signs: Temp Pulse Resp BP Pulse Ox 98.4 F 92 16 180/93 H 98 04/10/20 11:45 04/10/20 11:45 04/10/20 11:45 04/10/20 11:45 04/10/20 11:45 - Laboratory Result Diagrams: 04/10/20 12:00 04/10/20 12:00 Laboratory results interpreted by me: 04/10/20 04/10/20 12:00 13:00 Hgb 15.9 H RDW 14.3 H Urine Ketones 20 H Discharge - Discharge Clinical Impression: Vomiting Qualifiers: Vomiting type: unspecified Vomiting Intractability: non-intractable Nausea presence: with nausea Qualified Code(s): R11.2 - Nausea with vomiting, unspecified Condition: Stable Disposition: HOME, SELF-CARE Additional Instructions: Take Zofran for any recurrent nausea vomiting. Your lab work was reassuring today. Follow-up with your primary care provider in 2 to 3 days call for appointment. Return to the emergency department if you develop recurrent vomiting, fever greater than 101 or abdominal pain as discussed. You declined COVID testing today Prescriptions: Ondansetron [Zofran Odt 4 mg Tablet] 1 - 2 tab PO Q4H PRN #15 tab.rapdis PRN Reason: For Nausea/Vomiting Forms: Return to Work Referrals: DERRICK GIBBS MD [Primary Care Provider] - Follow up as needed
[2020-04-10 15:16] VITALS: BP 185/90
== END 2020-04-10 15:12 | disposition home or self-care (01) ==
LOC: ER 11:38
DX: R11.2 Nausea with vomiting, unspecified (principal); R19.7 Diarrhea, unspecified; E78.00 Pure hypercholesterolemia, unspecified; I10 Essential (primary) hypertension; Z90.49 Acquired absence of other specified parts of digestive tract
CPT/HCPCS: 99284; 96374; 36415; 83690; 85025; 80053; 81001; J2405